=== PATIENT | female | born 1985 | race Caucasian/White ===

== ENCOUNTER 2017-02-13 09:47 | Emergency (ER) | payer BC, OTHER ==
[2017-02-13 09:56] VITALS: BP 106/51
--- NOTE | 2017-02-13 10:32 | UC ---
Complaint Female HPI - HPI Summary HPI Summary: head has been itching for 3 weeks---friends looked in her hair and said they did not see any lice had unprotected receptive oral penetration about 1 week ago-now has a sores in side of her bottom lip and is concerned about Herpes - History Of Current Complaint Chief Complaint: UCGeneralIllness Stated Complaint: PERSONAL Time Seen by Provider: 02/13/17 09:56 Hx Obtained From: Patient Hx Last Menstrual Period: 01/21/17 ?: No Onset/Duration: Gradual Onset, Lasting Weeks - 3 weeks of itching and few days of mouth sores, Still Present Timing: Intermittent Severity Initially: Moderate Severity Currently: Moderate Pain Intensity: 5 Pain Scale Used: 0-10 Numeric Character: Dull, Burning Aggravating Factor(s): Nothing Alleviating Factor(s): Nothing Associated Signs And Symptoms: Positive: Negative - Allergies/Home Medications Allergies/Adverse Reactions: Allergies Allergy/AdvReac Type Severity Reaction Status Date / Time No Known Allergies Allergy Verified 11/13/14 22:18 PMH/Surg Hx/FS Hx/Imm Hx Previously Healthy: Yes - Surgical History Surgical History: Yes Surgery Procedure, Year, and Place: heart - Family History Known Family History: Positive: None Family History: no cardio vascular issues reported in family lineage - Social History Occupation: Employed Full-time - kindergarten classroom teacher Lives: Alone Alcohol Use: Occasionally Substance Use Type: None Smoking Status (MU): Never Smoked Tobacco Review of Systems Constitutional: Negative Skin: Other - inside of lower lip---has canker sore and a small patch of red and tender skin Eyes: Negative ENT: Negative Respiratory: Negative Cardiovascular: Negative Gastrointestinal: Negative Genitourinary: Negative Motor: Negative Neurovascular: Negative Musculoskeletal: Negative Neurological: Negative Psychological: Negative All Other Systems Reviewed And Are Negative: Yes - Comments Additional Review of Systems Comments: scalp itching Physical Exam Triage Information Reviewed: Yes Appearance: Well-Appearing, No Pain Distress, Well-Nourished Vital Signs: Initial Vital Signs Temp 97.8 F 02/13/17 09:48 Pulse 85 02/13/17 09:48 Resp 16 02/13/17 09:48 BP 106/51 02/13/17 09:48 Pulse Ox 100 02/13/17 09:48 Vital Signs Reviewed: Yes Eye Exam: Normal Eyes: Positive: Conjunctiva Clear ENT Exam: Normal ENT: Positive: Normal ENT inspection, Hearing grossly normal, Pharynx normal, Other: - apthous ulcers in side lower lip with one patch of moist erthema-no discrete vesicles nites and live bugs noted in hair. Negative: Nasal congestion , Nasal drainage, Trismus, Muffled/hoarse voice Dental Exam: Normal Neck exam: Normal Neck: Positive: Supple, Nontender, Other: - bug bites a nap og neck Respiratory Exam: Normal Respiratory: Positive: Chest non-tender, Lungs clear, Normal breath sounds, No respiratory distress, No accessory muscle use Cardiovascular Exam: Normal Cardiovascular: Positive: RRR, No Murmur, Pulses Normal, Brisk Capillary Refill Musculoskeletal Exam: Normal Musculoskeletal: Positive: Strength Intact, ROM Intact, No Edema Neurological Exam: Normal Neurological: Positive: Alert, Muscle Tone Normal Psychological Exam: Normal Psychological: Positive: Normal Response To Family, Age Appropriate Behavior Skin: Positive: Other - bug bites nap of neck, ulcers in side of lower lip Complaint Female Dx - Course Course Of Treatment: premetherine shampoo, acyclovir, [facility] - Differential Dx/Diagnosis Differential Diagnosis/HQI/PQRI: Sexually Transmitted Disease, Other - lice, herpes Provider Diagnoses: Herpes Labialis, Lice Discharge - Discharge Plan Condition: Stable Disposition: HOME Prescriptions: Acyclovir* [Zovirax TAB*] 400 mg PO 5ID #25 tab Permethrin 1% LOTION* [Nix 1% LOTION*] 1 applic TOPICAL SEE INSTRUCTIONS #59 ml Patient Education Materials: Pediculosis (ED), Oral Herpes Simplex Virus Infections (ED) Referrals: No Primary Care Phys,NOPCP [Primary Care Provider] - Additional Instructions: [facility] at [facility]2 weeks [phone]
[2017-02-16 21:21] LABS: HS/VZ Source INSIDE LOWER LIP; Varicella Zoster Result Negative (Negative); Varicella Zoster Source INSIDE LOWER LIP
== END 2017-02-13 10:48 | disposition home or self-care (01) ==
LOC: UCEAST 09:47
DX: B00.1 Herpesviral vesicular dermatitis (principal); B85.2 Pediculosis, unspecified
CPT/HCPCS: 87529; 87798; 99212; G0463